=== PATIENT | female | born 1945 | race Caucasian/White ===

== ENCOUNTER 2025-04-08 08:07 | Outpatient (CLI) | payer OTHER, SELFPAY ==
--- NOTE | 2025-04-08 | DI.RAD_ITS ---
Exam(s) RF BARIUM SWALLOW EXAM: RF BARIUM SWALLOW CLINICAL HISTORY: Dysphonia, R49.0; dysphagia, R13.10 TECHNIQUE: 2D and realtime digital imaging was performed. CONTRAST MATERIAL: Oral barium contrast was administered. COMPARISON: No exams were available for comparison FINDINGS: CHEST X-RAY: The heart and pulmonary vasculature are within normal limits. The lungs are clear. No pl eural effusion or pneumothorax is present. The bones are within normal limits for the patient's age. ESOPHAGRAM: The esophagus is patent with no evidence for erosions, fold thickening, strictures, or ma sses. With regards to the motility, there is a normal primary stripping wave. No tertiary contraction s were noted. There is a small hiatal hernia present. No gastroesophageal reflux was identified duri ng the examination. IMPRESSION: Small hiatal hernia. Otherwise unremarkable examination. RADIATION DOSE DELIVERED: nohemy Miller=12.8 mGy
[2025-04-08] MEDS: Barium Sulfate 98% W/W 140 ML BTL PO (11:31)
[2025-04-08] MEDS: Barium Sulfate 60% W/V 355 ML BTL PO (11:36)
== END 2025-04-08 08:27 ==
LOC: DI 08:07
PROVIDERS: PCP Physician Assistant; Visit Provider Family Medicine
DX: K46.9 Unspecified abdominal hernia without obstruction or gangrene (principal)
CPT/HCPCS: 74221; J3490